=== PATIENT | female | born 1995 | race American Indian/Alaskan Native ===

== ENCOUNTER 2016-11-13 01:55 | Outpatient (CLI) | payer MEDICAID | END 2016-11-13 05:29 | disposition home or self-care (01) | LOC: TRG 01:55 | PROVIDERS: ATTEND Obstetrics & Gynecology | DX: O26.893 Other specified pregnancy related conditions, third trimester (principal); R10.9 Unspecified abdominal pain; M54.9 Dorsalgia, unspecified; Z3A.37 37 weeks gestation of pregnancy ==

== ENCOUNTER 2016-11-28 21:28 | Outpatient (CLI) | payer MEDICAID ==
[2016-11-28 21:53] VITALS: BP 117/72
== END 2016-11-28 22:20 | disposition home or self-care (01) ==
LOC: TRG 21:28
PROVIDERS: ATTEND Obstetrics & Gynecology
DX: O48.0 Post-term pregnancy (principal); Z3A.40 40 weeks gestation of pregnancy